=== PATIENT | female | born 1965 | race Caucasian/White ===

== ENCOUNTER 2017-07-28 13:21 | Emergency (ER) | payer BC, MEDICAID ==
[~2017-07-28] VITALS: Ht 177.8 cm; Wt 102.0 kg
[~2017-07-28 13:21] MED LIST: ASPI-496 PO; HYDR-3237 PO; LOSA25TA5 PO; METH500T97 PO; OMEP-110 PO; VARE1TAB21 PO
[2017-07-28 13:30] VITALS: BP 122/83
[2017-07-28] MEDS ORDERED: HYDROcodone/APAP 5/325 TABLET ONE (13:59)
[2017-07-28] MEDS ORDERED: HYDROcodone/APAP 5/325 TABLET PO ONE (14:00)
== END 2017-07-28 14:48 | disposition home or self-care (01) ==
LOC: ED 14:44
DX: S80.01XA Contusion of right knee, initial encounter (principal); F17.200 Nicotine dependence, unspecified, uncomplicated; W01.0XXA Fall on same level from slipping, tripping and stumbling without subsequent striking against object, initial encounter; Y93.89 Activity, other specified; Y99.8 Other external cause status; Y92.009 Unspecified place in unspecified non-institutional (private) residence as the place of occurrence of the external cause
CPT/HCPCS: 99284